=== PATIENT | male | born 1955 | race Caucasian/White ===

== ENCOUNTER 2016-09-29 13:39 | Emergency (ER) | payer MEDICARE ==
[~2016-09-29] VITALS: Ht 180.3 cm; Wt 85.9 kg
[2016-09-29] MEDS ORDERED: PANTOPRAZOLE 40 MG IV IVP ONE (14:00)
[2016-09-29] MEDS ORDERED: PLEASE ENTER ALLERGIES MC SCH ×2 (14:00)
[2016-09-29] MEDS ORDERED: SODIUM CHLORIDE FLUSH 10ML SYR IVF ONE (14:00)
[2016-09-29] MEDS ORDERED: SODIUM CHLORIDE 0.9% 1,000ML IVBOLUS ONE (14:00)
[2016-09-29 14:50] LABS: ASPARTATE AMINO TRANSFERASE 54 U/L (15-37); BLOOD UREA NITROGEN 21 mg/dL (7-18)
[2016-09-29] MEDS ORDERED: PANTOPRAZOLE 40 MG IV ONE (14:50)
[2016-09-29 14:53] LABS: ACETAMINOPHEN < 2 mcg/mL (10-30)
[2016-09-29] MEDS ORDERED: ONDANSETRON 2MG/ML, 2ML ONE (14:56)
[2016-09-29 15:29] LABS: DAU SCREEN DISCLAIMER
[2016-09-29] MEDS ORDERED: ONDANSETRON 2MG/ML, 2ML IVPush ONE (15:30)
[2016-09-29] MEDS ORDERED: LORazepam 1MG TABLET ONE (20:42)
[2016-09-29] MEDS ORDERED: LORazepam 1MG TABLET PO ONE (21:00)
[2016-09-29 21:29] VITALS: BP 161/124
== END 2016-09-29 22:51 | disposition home or self-care (01) ==
LOC: ED 21:35
DX: F31.9 Bipolar disorder, unspecified (principal)
CPT/HCPCS: 36415; 80053; 80307; 80329; 81001; 85025; 87086; 96361; 96374; 96375; 99285; C9113; J2405; J7030; G0480